=== PATIENT | female | born 1980 | race Hispanic/Latino ===

== ENCOUNTER → 2021-06-08 | Outpatient (CLI) | payer OTHER ==
[~2021-06-08] VITALS: Ht 15.2 cm; Wt 74.4 kg
== END | disposition home or self-care (01) ==
LOC: DTH 09:25
PROVIDERS: ATTEND Surgery
DX: K21.9 Gastro-esophageal reflux disease without esophagitis (principal); I10 Essential (primary) hypertension; E66.01 Morbid (severe) obesity due to excess calories; E11.9 Type 2 diabetes mellitus without complications; K76.0 Fatty (change of) liver, not elsewhere classified; Z68.39 Body mass index [BMI] 39.0-39.9, adult
CPT/HCPCS: 97802

== ENCOUNTER → 2021-08-03 | Outpatient (CLI) | payer OTHER | END | disposition home or self-care (01) | LOC: DTH 09:17 | PROVIDERS: ATTEND Surgery | DX: Z71.3 Dietary counseling and surveillance (principal); E11.9 Type 2 diabetes mellitus without complications; E78.00 Pure hypercholesterolemia, unspecified; K76.0 Fatty (change of) liver, not elsewhere classified; K21.9 Gastro-esophageal reflux disease without esophagitis; E66.09 Other obesity due to excess calories; Z68.39 Body mass index [BMI] 39.0-39.9, adult | CPT/HCPCS: 97803 ==

== ENCOUNTER 2021-09-17 07:03 | Day surgery (SDC) | payer MEDICAID ==
[2021-09-17] VITALS (8 sets, daily range): BP systolic 92–133; BP diastolic 56–108
[~2021-09-17] VITALS: Ht 149.9 cm; Wt 72.6 kg
[~2021-09-17 07:03] MED LIST: ESCI10TA PO; GABA600T10 PO; GLIM2TAB30 PO; LORA10TA7 PO; META800T72 PO; METF-446 PO; OMEP40CA21 PO; SIMV-43 PO; TOLT1TAB13 PO; VALS160T2 PO
[2021-09-17] MEDS ORDERED: FENTANYL CITRATE PF 50 MCG/1 ML 2ML VIAL ONE (07:53)
[2021-09-17] MEDS ORDERED: PROPOFOL 10 MG/ML 20ML VIAL IV ONE (07:53)
[2021-09-17] MEDS ORDERED: LIDOCAINE PF 100MG/5ML (2%) SYRINGE 5ML ONE (07:54)
[2021-09-17] MEDS ORDERED: 0.9%NACL 1000ML 1,000 ML IV ONE (07:56)
[2021-09-17] MEDS ORDERED: IPRATROPIUM/ALBUTEROL SULFATE 3 ML SOLUTION IH ONE (08:36)
== END 2021-09-17 09:03 | disposition home or self-care (01) ==
LOC: DAH 07:03
PROVIDERS: ATTEND Surgery
DX: K21.9 Gastro-esophageal reflux disease without esophagitis (principal); Z20.822 Contact with and (suspected) exposure to COVID-19; I10 Essential (primary) hypertension; E11.9 Type 2 diabetes mellitus without complications; E66.01 Morbid (severe) obesity due to excess calories; Z90.710 Acquired absence of both cervix and uterus; Z90.49 Acquired absence of other specified parts of digestive tract; Z98.890 Other specified postprocedural states; Z90.722 Acquired absence of ovaries, bilateral; Z90.13 Acquired absence of bilateral breasts and nipples; Z82.49 Family history of ischemic heart disease and other diseases of the circulatory system; Z80.9 Family history of malignant neoplasm, unspecified; Z68.35 Body mass index [BMI] 35.0-35.9, adult; Z98.84 Bariatric surgery status; Z79.899 Other long term (current) drug therapy
CPT/HCPCS: 43235; 71045; 82948 ×2; 87635; 93005; A4215 ×2; A4221; A4222; A4223; A4606; A4620; A4657; A4663; A7002; C9803; J3010; J3490 ×2; J7030; J2001; J2704